=== PATIENT | male | born 1970 | race Caucasian/White ===

== ENCOUNTER 2019-05-15 14:12 | Emergency (ER) | payer MEDICARE ==
[~2019-05-15] VITALS: Ht 170.2 cm; Wt 79.4 kg
[2019-05-15 14:15] VITALS: BP 116/60
[2019-05-15] MEDS ORDERED: ONDANSETRON HCL 4 MG/2 ML VIAL IV ONE (14:45)
[2019-05-15] MEDS ORDERED: ASPirin 81 mg TAB PO ONE (14:45)
[2019-05-15] MEDS ORDERED: MORPHINE SULF INJ 2 MG/ML SYRINGE 1ML IV ONE (14:45)
== END 2019-05-15 18:49 | disposition home or self-care (01) ==
LOC: ER 14:12
DX: I24.9 Acute ischemic heart disease, unspecified (principal); I11.0 Hypertensive heart disease with heart failure; I50.9 Heart failure, unspecified; I25.10 Atherosclerotic heart disease of native coronary artery without angina pectoris; F17.210 Nicotine dependence, cigarettes, uncomplicated; Z88.5 Allergy status to narcotic agent; Z88.2 Allergy status to sulfonamides
CPT/HCPCS: 71046